=== PATIENT | female | born 1995 ===

== ENCOUNTER 2019-09-03 06:50 | Day surgery (SDC) | payer OTHER ==
[~2019-09-03] VITALS: Ht 152.4 cm; Wt 65.5 kg
[2019-09-03 07:18] VITALS: BP 113/80; PULSE 74; TEMP 97.7
[2019-09-03] MEDS ORDERED: PRENATAL TABLET PO (07:24)
--- NOTE | 2019-09-03 07:25 | NUR ---
TO RM AT 0655- CALL LIGHT IN REACH AT BEDSIDE.
[2019-09-03 09:00] VITALS: BP 110/78; PULSE 89; TEMP 97
--- NOTE | 2019-09-03 09:05 | NUR ---
Dr Padilla into see patient to go over procedure results.
[2019-09-03 09:15] VITALS: BP 99/79; PULSE 71; TEMP 97
--- NOTE | 2019-09-03 09:20 | NUR ---
Patient tolerates juice without any nausea. Patient reports she is ready to go home. Vitals stable.
[2019-09-03 09:30] VITALS: BP 105/82; PULSE 68
--- NOTE | 2019-09-03 09:30 | NUR ---
Dismissal instructions gone over with patient and patient's spouse. Both verbalize understanding and all questions answered.
== END 2019-09-03 09:40 | disposition home or self-care (01) ==
LOC: SDCO 06:50
DX: Z12.11 Encounter for screening for malignant neoplasm of colon (principal); R10.9 Unspecified abdominal pain; J45.909 Unspecified asthma, uncomplicated; E28.2 Polycystic ovarian syndrome; Z80.0 Family history of malignant neoplasm of digestive organs; Z83.71 Family history of colonic polyps
CPT/HCPCS: J2704; J7030